=== PATIENT | female | born 1975 | race Caucasian/White ===

== ENCOUNTER → 2017-02-16 | Outpatient (CLI) | payer OTHER ==
[~2017-02-16] VITALS: Ht 162.6 cm; Wt 96.2 kg
[~2017-02-16] MED LIST: LYRICA150 MG PO; LYRICA75 MG PO; METFORMIN HCL500 MG PO; Motrin PO; Percocet 5/325,Endoc PO; TOPROL XL25 MG PO; ZOLOFT50 MG PO
[2017-02-16 12:39] LABS: POINT-OF-CARE METER ID UU13113819
== END | disposition home or self-care (01) ==
LOC: AMB 10:24
PROVIDERS: Internal Medicine
PROC: 0DJ08ZZ Inspection of Upper Intestinal Tract, Via Natural or Artificial Opening Endoscopic (ICD-10-PCS; principal; 2017-02-16)
DX: R13.10 Dysphagia, unspecified (principal); K44.9 Diaphragmatic hernia without obstruction or gangrene; I10 Essential (primary) hypertension; K21.9 Gastro-esophageal reflux disease without esophagitis; E78.1 Pure hyperglyceridemia; E66.09 Other obesity due to excess calories; Z68.36 Body mass index [BMI] 36.0-36.9, adult; Z80.3 Family history of malignant neoplasm of breast; Z82.0 Family history of epilepsy and other diseases of the nervous system; Z81.8 Family history of other mental and behavioral disorders; Z84.2 Family history of other diseases of the genitourinary system; Z83.3 Family history of diabetes mellitus; Z91.040 Latex allergy status
CPT/HCPCS: 82948; 93005; J2250